=== PATIENT | female | born 1955 | race Caucasian/White ===

== ENCOUNTER 2018-04-06 06:45 | Day surgery (SDC) | payer MEDICARE, OTHER ==
[~2018-04-06] VITALS: Ht 162.6 cm; Wt 48.0 kg
[2018-04-06] VITALS (10 sets, daily range): BP systolic 69–103; BP diastolic 45–61; PULSE 56–58; RESP 9–23; Ht 162.6 cm; Wt 48.0 kg
[~2018-04-06 06:45] MED LIST: ASPI-535; BUPR100T5; CLOP75TA19; ESCI10TA; EZET10TA31; LEVO75TA59; LISI40TA3; METF500T3; METO-429; NIAC250T15; OMEG-135; SIMV80TA18
[2018-04-06] MEDS ORDERED: PHENYLephrine 10% 5 ML OPH OPER SCH (07:00)
[2018-04-06] MEDS ORDERED: CYCLOPENTOLATE 2% 2 ML OPH OPER SCH (07:00)
[2018-04-06] MEDS ORDERED: NEPAFENAC 0.1% 3 ML OPH OPER SCH (07:00)
[2018-04-06] MEDS ORDERED: MOXIFLOXACIN 0.5% 3 ML OPH OPER ONE (07:00)
[2018-04-06] MEDS ORDERED: METF500T24 PO (07:40)
[2018-04-06] MEDS ORDERED: METO-319 PO (07:41)
[2018-04-06] MEDS ORDERED: ESCI20TA PO (07:42)
[2018-04-06] MEDS ORDERED: LISI10TA2 PO (07:42)
[2018-04-06] MEDS ORDERED: AMLO2.5T78 PO (07:43)
[2018-04-06] MEDS ORDERED: PRAV20TA63 PO (07:44)
[2018-04-06] MEDS ORDERED: LEVO125T71 PO (07:45)
[2018-04-06] MEDS ORDERED: OXYC30TA72 PO (07:49)
[2018-04-06] MEDS ORDERED: CABO40TA PO (07:49)
--- NOTE | 2018-04-06 08:46 | HPN ---
Date/Time of Note Date/Time of Note DATE: 04/06/18 TIME: 08:45 Interval H&P Admission Note Pt. seen H&P reviewed: No system changes JERAD CASTILLO MD Apr 06, 2018 08:46
--- NOTE | 2018-04-06 09:14 | PREAC ---
Date/Time of Note Date/Time of Note DATE: 04/06/18 TIME: 09:09 Anesthesia Eval and Record Evaluation Time Pre-Procedure Interview DATE: 04/06/18 TIME: 09:09 Age 62 Sex female NPO: 8 hrs Preoperative diagnosis L cataract Planned procedure Phacoemulsification cataract w/ Lens implant of posterior chamber IOL L eye Past Medical History Past Medical History: Includes (hx Bladder and Bone cx - pt states she is currently cancer free) Cardio: HTN, CT, CAD, CABG Endo: Diabetes, Hypothyroid Pulm: Smoking Hx Psych: Depression Surgery & Anesthesia Issues No known issue Meds Anticoagulation: No Beta Khushi within 24 hr: Yes Reported Medications Cabozantinib S-Malate (Cabometyx) 40 Mg Tablet, 40 MG PO DAILY, TAB 04/06/18 Oxycodone Hcl (Roxicodone) 30 Mg Tablet, 30 MG PO Q6 PRN for PAIN, TAB 04/06/18 Levothyroxine Sodium* (Levoxyl*) 125 Mcg Tablet, 125 MCG PO BEFORE BREAKFAST, #30 TAB 04/06/18 Pravastatin Sodium* (Pravastatin Sodium*) 20 Mg Tablet, 20 MG PO HS, TAB 04/06/18 Amlodipine Besylate* (Amlodipine Besylate*) 2.5 Mg Tablet, 2.5 MG PO DAILY, #30 TAB 04/06/18 Escitalopram Oxalate* (Lexapro*) 20 Mg Tablet, 20 MG PO DAILY, #30 TAB 04/06/18 Lisinopril* (Lisinopril*) 10 Mg Tablet, 10 MG PO DAILY, #30 TAB 04/06/18 Metoprolol Succinate* (Toprol XL*) 50 Mg Tab.er.24h, 50 MG PO DAILY, #30 TAB 04/06/18 Metformin Hcl* (Metformin Hcl*) 500 Mg Tablet, 500 MG PO WITH BREAKFAST, #30 TAB 04/06/18 Discontinued Reported Medications Metoprolol Tartrate (LOPRESSOR) 50 Mg Tab 07/23/10 Lisinopril* (Lisinopril*) 40 Mg Tablet 07/23/10 Fish Oil* (Fish Oil*) 1,000 Mg Cap 12/04/09 Aspirin Ec (Aspir 81) 81 Mg Tablet. 12/04/09 Niacin (Niacin) 250 Mg Tablet 12/04/09 Metformin* (Glucophage* XR) 500 Mg Tab.sr.24h 12/04/09 Levothyroxine Sodium (Levothroid) 75 Mcg Tablet 12/04/09 Ezetimibe* (Zetia*) 10 Mg Tablet 12/04/09 Clopidogrel Bisulfate (Plavix) 75 Mg Tablet 12/04/09 Simvastatin* (Simvastatin*) 80 Mg Tablet 12/04/09 Escitalopram Oxalate* (Lexapro*) 10 Mg Tablet 12/04/09 Bupropion Hcl (Budeprion Sr) 100 Mg Tablet.sa 12/04/09 Current Medications Cyclopentolate HCl (Cyclogyl 2% Oph) 1 drop Q5 MIN X 3 OPER Last administered on 04/06/18at 07:46; Admin Dose 1 DROP; Start 04/06/18 at 07:00 Phenylephrine HCl (Ak-Dilate 10%) 1 drop Q5 MIN X3 OPER Last administered on 04/06/18at 07:46; Admin Dose 1 DROP; Start 04/06/18 at 07:00 Nepafenac (Nevanac Oph) 1 drop Q5 MIN X3 OPER Last administered on 04/06/18at 07:46; Admin Dose 1 DROP; Start 04/06/18 at 07:00 Meds reviewed: Yes Allergies Coded Allergies: pneumococcal vaccine (Verified Allergy, Unknown, ARM SWELLING, 04/06/18) Allergies Reviewed: Yes Labs/Studies Labs Reviewed: Reviewed by anesthesiologist test: N/A Studies: ECG (SR, marked L axis deviation, Twav abnormal) Pre-procedure Exam Last vitals Vital Signs Date Temp Pulse Resp B/P (MAP) Pulse Ox O2 O2 Flow FiO2 Time Delivery Rate 04/06/18 99.2 58 18 94/61 (72) 98 Room Air 08:05 Airway: Adequate mouth opening, Adequate thyromental dist Mallampati: Mallampati II Teeth: Normal Lung: Normal Heart: Normal ASA Physical Status ASA physical status: 3 Emergency: None Planned Anesthetic General/MAC: MAC Pre-operative Attestations Prior to commencing anesthesia and surgery, the patient was re-evaluated, there was verification of: *The patient's identity *The results of appropriate recent lab work and preoperative vital signs *The above evaluation not changing prior to induction *Anesthetic plan, risk benefits, alternative and complications discussed with patient/family; questions answered; patient/family understands, accepts and wishes to proceed. CANDACE NAILS Apr 06, 2018 09:14
[2018-04-06] MEDS ORDERED: PROPOFOL 20 ML ONE (09:26)
[2018-04-06] MEDS ORDERED: LIDOCAINE 2% (SDV) 5 ML INJ ONE (09:26)
[2018-04-06] MEDS ORDERED: OXYCODONE/ACETAMINOPHEN (5/325) TAB PO PRN (09:30)
[2018-04-06] MEDS ORDERED: FENTAnyl 50 MCG/ML VIAL IV PRN (09:30)
[2018-04-06] MEDS ORDERED: ONDANSETRON 4 MG INJ IV PRN (09:30)
[2018-04-06] MEDS ORDERED: hydrALAzine 20 MG INJ IV PRN (09:30)
[2018-04-06] MEDS ORDERED: ACETAMINOPHEN 500 MG TAB PO PRN (09:30)
[2018-04-06] MEDS ORDERED: DIPHENHYDRAMINE 50 MG INJ IV PRN (09:30)
[2018-04-06] MEDS ORDERED: ACETAMINOPHEN 325 MG TAB PO PRN (09:30)
[2018-04-06] MEDS ORDERED: ALBUTEROL 0.083% (NEB) 2.5 MG/3 ML AMP HHN PRN (09:30)
[2018-04-06] MEDS ORDERED: LABETALOL HCL 20MG INJ IV PRN (09:30)
--- NOTE | 2018-04-06 10:18 | PAC ---
Date/Time of Note Date/Time of Note DATE: 04/06/18 TIME: 10:17 Post-Anesthesia Notes Post-Anesthesia Note Last documented vital signs Vital Signs Date Temp Pulse Resp B/P (MAP) Pulse Ox O2 O2 Flow FiO2 Time Delivery Rate 04/06/18 98 58 18 102/49 98 Room Air 1013 (65) Activity: WNL Respiratory function: WNL Cardiovascular function: WNL Mental status: Baseline Pain reasonably controlled: Yes Hydration appropriate: Yes Nausea/Vomiting absent: Yes CANDACE NAILS Apr 06, 2018 10:18
--- NOTE | 2018-04-06 10:25 | SIPON ---
Date/Time of Note Date/Time of Note DATE: 04/06/18 TIME: 10:21 Operative Report Preoperative Diagnosis senile nuclear sclerotic cataract left eye Postoperative Diagnosis same Operation/Procedure Performed KPE with posterior chamber lens Surgeon see signature line foundation assistant none Anesthesia: MAC Estimated blood loss: none (none) Transfusion Required none Specimen none Grafts/Implants Posterior chamber lens implantnone Complications none JERAD CASTILLO MD Apr 06, 2018 10:25
--- NOTE | 2018-04-06 11:06 | OPR ---
DATE OF OPERATION: 04/06/2018 SURGEON: Jerad Vasquez MD [employer] SUPERINTENDENT: None. PREOPERATIVE DIAGNOSIS: Senile nuclear sclerotic cataract left eye. POSTOPERATIVE DIAGNOSIS: Senile nuclear sclerotic cataract, left eye. OPERATION: Kelman phacoemulsification with implantation of intraocular lens left eye. DESCRIPTION OF PROCEDURE: Following standard preparation and draping of the patient, a lid speculum was placed for immobilization of the lids. A SuperBlade incision was made at the corneal limbal junc tion for access into the anterior chamber. Approximately 0.03 mL of nonpreserved 1% Xylocaine was in stilled into the anterior chamber, and after approximately 5 to 10 seconds, this was replaced with Vi scoat. A clear corneal incision was then made using the 3.2 mm keratome, following which an anterior circular capsulorrhexis was made. The major portion of the lens cortex and nucleus were then disloc ated from the capsular bag using hydrodissection. The KPE tip was introduced into the eye and contro lling tumbling of the lens with a 2-handed technique, the major portion of the lens cortex and nucleu s was removed, maintaining the lens in the plane of the iris. The remaining cortical material was re moved via the irrigating aspirating instrument. The capsular bag and the anterior chamber were now r eformed using Viscoat. The proper power lens was then placed in the capsular bag. The viscoelastic was then removed from the eye and the eye reformed with balanced salt solution. One 10-0 Vicryl sutu re was then used to ensure closure of the corneal incision. The eye was reformed to normal pressure using balanced salt solution. The eye and cul-de-sacs were now simply flooded with 5% Betadine solut ion. One drop of Vigamox and 1 drop of Betagan solution were instilled into the eye. A light pressu re dressing was applied, and the patient was returned to the recovery room in satisfactory condition. Dictated By: JERAD BUCKNER/GURU Conf#: [id number] DID#: [id number]
== END 2018-04-06 11:33 | disposition home or self-care (01) ==
LOC: SDS 06:45
PROVIDERS: ATTEND Ophthalmology
DX: H25.12 Age-related nuclear cataract, left eye (principal); I10 Essential (primary) hypertension; I25.10 Atherosclerotic heart disease of native coronary artery without angina pectoris; I25.2 Old myocardial infarction
CPT/HCPCS: 66984; 82962; V2632

== ENCOUNTER 2018-08-03 08:46 | Day surgery (SDC) | payer MEDICARE, OTHER ==
[2018-08-03] VITALS (9 sets, daily range): BP systolic 115–152; BP diastolic 61–82; PULSE 50–59; RESP 11–21; Ht 162.6 cm; Wt 45.6 kg
[~2018-08-03] VITALS: Ht 162.6 cm; Wt 45.6 kg
[~2018-08-03 08:46] MED LIST changes: +AMLO2.5T78 PO; -ASPI-535; -BUPR100T5; +CABO40TA PO; -CLOP75TA19; -ESCI10TA; +ESCI20TA PO; -EZET10TA31; +LEVO125T71 PO; -LEVO75TA59; +LISI10TA2 PO; -LISI40TA3; +METF500T24 PO; -METF500T3; +METO-319 PO; -METO-429; -NIAC250T15; -OMEG-135; +OXYC30TA72 PO; +PRAV20TA63 PO; -SIMV80TA18
[2018-08-03] MEDS ORDERED: NEPAFENAC 0.1% 3 ML OPH RIGHT EYE SCH (09:08)
[2018-08-03] MEDS ORDERED: MOXIFLOXACIN 0.5% 3 ML OPH RIGHT EYE ONE (09:08)
[2018-08-03] MEDS ORDERED: PHENYLephrine 10% 5 ML OPH RIGHT EYE SCH (09:08)
[2018-08-03] MEDS ORDERED: CYCLOPENTOLATE 2% 2 ML OPH RIGHT EYE SCH (09:08)
--- NOTE | 2018-08-03 10:09 | PREAC ---
Date/Time of Note Date/Time of Note DATE: 08/03/18 TIME: 10:07 Anesthesia Eval and Record Evaluation Time Pre-Procedure Interview DATE: 08/03/18 TIME: 10:07 Age 63 Sex female NPO: 8 hrs Preoperative diagnosis Right Eye Cataract Planned procedure Extraction Cataract, Right Eye, Insertion of IOL Past Medical History Past Medical History: Includes Cardio: HTN, CABG, PTCA/Stent Endo: Diabetes Psych: Depression Surgery & Anesthesia Issues No known issue Meds Anticoagulation: No Beta Khushi within 24 hr: Yes Reported Medications Cabozantinib S-Malate (Cabometyx) 40 Mg Tablet, 40 MG PO DAILY, TAB 04/06/18 Oxycodone Hcl (Roxicodone) 30 Mg Tablet, 30 MG PO Q6 PRN for PAIN, TAB 04/06/18 Levothyroxine Sodium* (Levoxyl*) 125 Mcg Tablet, 125 MCG PO BEFORE BREAKFAST, #30 TAB 04/06/18 Pravastatin Sodium* (Pravastatin Sodium*) 20 Mg Tablet, 20 MG PO HS, TAB 04/06/18 Amlodipine Besylate* (Amlodipine Besylate*) 2.5 Mg Tablet, 2.5 MG PO DAILY, #30 TAB 04/06/18 Escitalopram Oxalate* (Lexapro*) 20 Mg Tablet, 20 MG PO DAILY, #30 TAB 04/06/18 Lisinopril* (Lisinopril*) 10 Mg Tablet, 10 MG PO DAILY, #30 TAB 04/06/18 Metoprolol Succinate* (Toprol XL*) 50 Mg Tab.er.24h, 50 MG PO DAILY, #30 TAB 04/06/18 Metformin Hcl* (Metformin Hcl*) 500 Mg Tablet, 500 MG PO WITH BREAKFAST, #30 TAB 04/06/18 Current Medications Cyclopentolate HCl (Cyclogyl 2% Oph) 1 drop Q5 MIN X 3 RIGHT EYE Last administered on 08/03/18at 09:23; Admin Dose 1 DROP; Start 08/03/18 at 09:08 Phenylephrine HCl (Ak-Dilate 10%) 1 drop Q5 MIN X3 RIGHT EYE Last administered on 08/03/18at 09:23; Admin Dose 1 DROP; Start 08/03/18 at 09:08 Nepafenac (Nevanac Oph) 1 drop Q5 MIN X3 RIGHT EYE Last administered on 08/03/18at 09:24; Admin Dose 1 DROP; Start 08/03/18 at 09:08 Meds reviewed: Yes Allergies Coded Allergies: pneumococcal vaccine (Verified Allergy, Unknown, ARM SWELLING, 08/03/18) Allergies Reviewed: Yes Labs/Studies Labs Reviewed: Reviewed by anesthesiologist test: N/A Pre-procedure Exam Last vitals Vital Signs Date Temp Pulse Resp B/P (MAP) Pulse Ox O2 O2 Flow FiO2 Time Delivery Rate 08/03/18 97.5 59 18 139/76 97 Room Air 09:47 (97) Airway: Adequate mouth opening Mallampati: Mallampati I Teeth: Abnormal (eduntulous) Lung: Normal Heart: Normal ASA Physical Status ASA physical status: 3 Emergency: None Planned Anesthetic General/MAC: MAC Pre-operative Attestations Prior to commencing anesthesia and surgery, the patient was re-evaluated, there was verification of: *The patient's identity *The results of appropriate recent lab work and preoperative vital signs *The above evaluation not changing prior to induction *Anesthetic plan, risk benefits, alternative and complications discussed with patient/family; questions answered; patient/family understands, accepts and wishes to proceed. SCOTT LEON MD August 03, 2018 10:09
[2018-08-03] MEDS ORDERED: LIDOCAINE 100 MG SYRINGE ONE (10:22)
[2018-08-03] MEDS ORDERED: PROPOFOL 20 ML ONE (10:22)
--- NOTE | 2018-08-03 10:29 | HPN ---
Date/Time of Note Date/Time of Note DATE: 08/03/18 TIME: 10:29 Interval H&P Admission Note Pt. seen H&P reviewed: No system changes JERAD CASTILLO MD August 03, 2018 10:29
[2018-08-03] MEDS ORDERED: hydrALAzine 20 MG INJ IV PRN (11:30)
[2018-08-03] MEDS ORDERED: ONDANSETRON 4 MG INJ IV PRN (11:30)
[2018-08-03] MEDS ORDERED: morphine 2 MG INJ IV PRN ×2 (11:30)
--- NOTE | 2018-08-03 13:17 | OPR ---
DATE OF OPERATION: 08/03/2018 SURGEON: Jerad Vasquez MD APPLICATION COUNSELOR: None. PREOPERATIVE DIAGNOSIS: Senile nuclear sclerotic cataract, right eye. POSTOPERATIVE DIAGNOSIS: Senile nuclear sclerotic cataract, right eye. OPERATION: Kelman phacoemulsification with implantation of intraocular lens, right eye. DESCRIPTION OF PROCEDURE: Following standard preparation and draping of the patient, a lid speculum was placed for immobilization of the lids. A SuperBlade incision was made at the corneal limbal junc tion for access into the anterior chamber. Approximately 0.03 mL of nonpreserved 1% Xylocaine was in stilled into the anterior chamber, and after approximately 5 to 10 seconds, this was replaced with Vi scoat. A clear corneal incision was then made using the 3.2 mm keratome, following which an anterior circular capsulorrhexis was made. The major portion of the lens cortex and nucleus were then disloc ated from the capsular bag using hydrodissection. The KPE tip was introduced into the eye and contro lling tumbling of the lens with a 2-handed technique, the major portion of the lens cortex and nucleu s was removed, maintaining the lens in the plane of the iris. The remaining cortical material was re moved via the irrigating aspirating instrument. The capsular bag and the anterior chamber were now r eformed using Viscoat. The proper power lens was then placed in the capsular bag. The viscoelastic was then removed from the eye and the eye reformed with balanced salt solution. One 10-0 Vicryl sutu re was then used to ensure closure of the corneal incision. The eye was reformed to normal pressure using balanced salt solution. The eye and cul-de-sacs were now simply flooded with 5% Betadine solut ion. One drop of Vigamox and 1 drop of Betagan solution were instilled into the eye. A light pressu re dressing was applied, and the patient was returned to the recovery room in satisfactory condition. Dictated By: JERAD BUCKNER/GURU Conf#: [id number] DID#: [id number]
== END 2018-08-03 12:49 | disposition home or self-care (01) ==
LOC: SDS 08:46
PROVIDERS: ATTEND Ophthalmology
DX: H25.11 Age-related nuclear cataract, right eye (principal); I25.10 Atherosclerotic heart disease of native coronary artery without angina pectoris; E11.9 Type 2 diabetes mellitus without complications; I10 Essential (primary) hypertension; E03.9 Hypothyroidism, unspecified; F32.9 Major depressive disorder, single episode, unspecified; Z79.84 Long term (current) use of oral hypoglycemic drugs
CPT/HCPCS: 66984; 82962; 85025; 85610; 85730; J2001; V2632